=== PATIENT | female | born 2000 | race Caucasian/White ===

== ENCOUNTER 2022-12-04 01:34 | Emergency (ER) | payer SELFPAY ==
[~2022-12-04] VITALS: Ht 167.6 cm; Wt 50.8 kg
[2022-12-04] MEDS ORDERED: SODIUM CHLORIDE 0.9% 1000ML 1,000 ML IV STA (01:51)
[2022-12-04] MEDS ORDERED: SODIUM CHLORIDE 0.9% 1000ML 1,000 ML ONE (01:58)
[2022-12-04] MEDS ORDERED: ONDANSETRON HCL INJ 2MG/ML 2ML 2 MG/ML VIAL ONE (01:58)
[2022-12-04] MEDS ORDERED: FAMOTIDINE 20 MG/2 ML VIAL IV ONE ×2 (01:58→02:00)
[2022-12-04] MEDS ORDERED: ONDANSETRON HCL INJ 2MG/ML 2ML 2 MG/ML VIAL IV ONE (02:00)
[2022-12-04] MEDS ORDERED: FAMOTIDINE20 MG PO (02:17)
[2022-12-04] MEDS ORDERED: ONDANSETRON ODT4 MG PO (02:17)
[2022-12-04] MEDS ORDERED: CEFDINIR300 MG PO (02:17)
[2022-12-04] MEDS ORDERED: CEFTRIAXONE 1 GM VIAL ONE (02:25)
[2022-12-04] MEDS ORDERED: CEFTRIAXONE 1 GM VIAL IV ONE (02:30)
[2022-12-04 03:08] VITALS: BP 128/69; PULSE 97; RESP 18; TEMP 99.4; O2SAT 95
== END 2022-12-04 03:08 | disposition home or self-care (01) ==
LOC: FSED 01:40
DX: N39.0 Urinary tract infection, site not specified (principal); R11.2 Nausea with vomiting, unspecified
CPT/HCPCS: 80053; 80307; 81003; 81025; 85025; 96374; 96375; 99283; J0696; J2405; J7030